=== PATIENT | female | born 1995 | race Caucasian/White ===

== ENCOUNTER 2022-12-04 10:34 | Inpatient (IN) | payer OTHER ==
[2022-12-04 11:20] VITALS: BMI 28.7
[2022-12-04] MEDS ORDERED: CITRIC ACID/SODIUM CITRATE 30 ML UNIT-DOSE CUP PO ONE (12:30)
[2022-12-04] MEDS ORDERED: ELECTROLYTE-148 SOLN 1,000 ML IV ONE (12:30)
[2022-12-04] MEDS ORDERED: ELECTROLYTE-148 SOLN 1,000 ML IV SCH (12:30)
[2022-12-04] MEDS ORDERED: ACETAMINOPHEN INJECTION 100 ML IVPB ONE (13:30)
[2022-12-04] MEDS ORDERED: OXYTOCIN 20 UNITS in 0.9% NS 40 UNIT/2,000 ML INFUS.BAG IV ONE (13:30)
[2022-12-04] MEDS ORDERED: ceFAZolin SODIUM 1 GM VIAL ONE (13:32)
[2022-12-04] MEDS ORDERED: morphine SULFATE/PF 1 MG/2 ML (2cc Syringe - QUVA) ONE (13:32)
[2022-12-04] MEDS ORDERED: DEXAMETHASONE SOD PHOSPHATE 4 MG/1 ML VIAL ONE (13:32)
[2022-12-04] MEDS ORDERED: ONDANSETRON 4 MG/2 ML VIAL ONE (13:32)
[2022-12-04] MEDS ORDERED: OXYTOCIN 10 UNITS/ML VIAL ONE (14:11)
[2022-12-04] MEDS: OXYTOCIN 20 UNITS in 0.9% NS 20 UNIT/1,000 ML INFUS.BAG IV SCH ×2 (15:00→20:40)
[2022-12-04] MEDS ORDERED: IBUPROFEN 800 MG/8 ML IJ IVPB PRN (15:09)
[2022-12-04] MEDS ORDERED: METHYLERGONOVINE MALEATE 0.2 MG/1 ML AMP IM PRN (15:09)
[2022-12-04] MEDS ORDERED: ACETAMINOPHEN 325 MG TABLET (FP) PO PRN (15:09)
[2022-12-04] MEDS ORDERED: ACETAMINOPHEN 1000 MG/100 ML BAG IVPB PRN (15:11)
[2022-12-04] MEDS: FERROUS SO4 325 MG TABLET (FP) PO SCH (17:57)
[2022-12-04] MEDS ORDERED: OXYTOCIN 20 UNITS in 0.9% NS 20 UNIT/1,000 ML INFUS.BAG IV ONE (20:35)
[2022-12-04] MEDS: SIMETHICONE 80 MG TAB.CHEW (FP) PO PRN (22:04)
[2022-12-05] MEDS ORDERED: oxyCODONE HCL 5 MG TABLET PO PRN (03:09)
[2022-12-05 07:47] LABS: BASO % 0.3 % (0-2.0); EOS % 0.1 % (0-4.5); HEMATOCRIT 29.3 % (32.4-45.2); HEMOGLOBIN 9.4 GM/dL (10.7-15.3); LYMPH % 13.8 % (8-40); MCH 26.5 pg (25.7-33.7); MCHC 32.2 g/dl (32.0-36.0); MEAN CELL VOLUME 82.3 fl (80-96); MEAN PLT VOLUME 9.9 fl (7.5-11.1); MONO % 9.2 % (3.8-10.2); NEUT % 76.6 % (42.8-82.8); PLATELET COUNT 171 10^3/uL (134-434); RBC 3.57 M/mm3 (3.60-5.2); RDW 15.5 % (11.6-15.6); WHITE BLOOD COUNT 17.9 K/mm3 (4.0-10.0)
[2022-12-05] MEDS: SIMETHICONE 80 MG TAB.CHEW (FP) PO PRN ×2 (09:53→23:34)
[2022-12-05] MEDS: FERROUS SO4 325 MG TABLET (FP) PO SCH ×2 (09:53→18:04)
[2022-12-05] MEDS: PRENATAL VITAMINS W/ FOLIC ACID TABLET (FP) PO SCH (09:53)
[2022-12-05] MEDS: IBUPROFEN 600 MG TABLET (FP) PO PRN ×3 (09:53→23:34)
[2022-12-05] MEDS ORDERED: BISACODYL 10 MG SUPP.RECT RC PRN (15:09)
[2022-12-05 22:45] VITALS: RESP 18
[2022-12-05] MEDS: SENNOSIDES/DOCUSATE COMBO (SENNA PLUS) TABLET (UD) PO PRN (23:34)
[2022-12-06] MEDS: FERROUS SO4 325 MG TABLET (FP) PO SCH ×2 (08:51→17:13)
[2022-12-06] MEDS: PRENATAL VITAMINS W/ FOLIC ACID TABLET (FP) PO SCH (09:52)
[2022-12-06] MEDS: oxyCODONE HCL 5 MG TABLET PO PRN ×3 (12:29→21:56)
[2022-12-06] MEDS: IBUPROFEN 600 MG TABLET (FP) PO PRN (17:13)
[2022-12-06] MEDS: SENNOSIDES/DOCUSATE COMBO (SENNA PLUS) TABLET (UD) PO PRN (21:56)
[2022-12-06] MEDS: SIMETHICONE 80 MG TAB.CHEW (FP) PO PRN (21:56)
[2022-12-07] MEDS: SIMETHICONE 80 MG TAB.CHEW (FP) PO PRN (02:44)
[2022-12-07] MEDS: oxyCODONE HCL 5 MG TABLET PO PRN ×2 (02:44→09:38)
[2022-12-07] MEDS: IBUPROFEN 600 MG TABLET (FP) PO PRN (08:03)
[2022-12-07] MEDS: FERROUS SO4 325 MG TABLET (FP) PO SCH (08:04)
[2022-12-07 08:33] VITALS: BP 127/80; PULSE 78; TEMP 98.3
[2022-12-07] MEDS: PRENATAL VITAMINS W/ FOLIC ACID TABLET (FP) PO SCH (09:38)
== END 2022-12-07 11:25 | disposition home or self-care (01) | DRG 540 ==
LOC: JLDR 10:34 → J3W 16:10
PROVIDERS: ADMIT Obstetrics & Gynecology; ATTEND Obstetrics & Gynecology
PROC: 10D00Z0 Extraction of Products of Conception, High, Open Approach (ICD-10-PCS; principal; 2022-12-04)
DX: O34.211 Maternal care for low transverse scar from previous cesarean delivery (principal); Z37.0 Single live birth; R03.0 Elevated blood-pressure reading, without diagnosis of hypertension; O69.1XX0 Labor and delivery complicated by cord around neck, with compression, not applicable or unspecified; Z3A.39 39 weeks gestation of pregnancy; Z87.59 Personal history of other complications of pregnancy, childbirth and the puerperium
CPT/HCPCS: 36415; 85025; 88307-TC; 94010

== ENCOUNTER 2023-03-26 04:34 | Day surgery (SDC) | payer OTHER ==
[2023-03-24 11:49] VITALS: BMI 23.3
[2023-03-26] MEDS ORDERED: LIDOCAINE HCL/PF 2% SDV 5ML VIAL ONE (15:01)
[2023-03-26] MEDS ORDERED: PROPOFOL 20 ML ONE (15:01)
[2023-03-26] MEDS ORDERED: MIDAZOLAM HCL 2 MG/2 ML SINGLE DOSE VIAL ONE (15:02)
[2023-03-26] MEDS ORDERED: ACETAMINOPHEN 1000 MG/100 ML BAG IVPB ONE ×2 (15:10→16:48)
[2023-03-26] MEDS ORDERED: DEXAMETHASONE SOD PHOSPHATE 4 MG/1 ML VIAL ONE (16:08)
[2023-03-26] MEDS ORDERED: ceFAZolin SODIUM 1 GM VIAL ONE (16:08)
[2023-03-26] MEDS ORDERED: ceFAZolin SODIUM 1 GM VIAL IVPB ONE (16:10)
[2023-03-26] MEDS ORDERED: KETOROLAC TROMETHAMINE 30 MG/1 ML VIAL ONE (16:14)
[2023-03-26] MEDS ORDERED: ONDANSETRON 4 MG/2 ML VIAL ONE ×2 (16:14→17:28)
[2023-03-26] MEDS ORDERED: IOHEXOL 300 MG/ML INFUS..BTL IV ONE (16:20)
[2023-03-26] MEDS ORDERED: PROMETHAZINE HCL 25 MG/1 ML VIAL IVPB PRN (16:48)
[2023-03-26] MEDS ORDERED: oxyCODONE HCL 5 MG TABLET PO PRN ×2 (16:48)
[2023-03-26] MEDS ORDERED: ONDANSETRON 4 MG/2 ML VIAL IVPUSH PRN (16:48)
[2023-03-26] MEDS ORDERED: ACETAMINOPHEN INJECTION 100 ML IVPB ONE (16:56)
[2023-03-26] MEDS ORDERED: LACTATED RINGERS SOLUTION 1,000 ML IV SCH (17:00)
[2023-03-26 17:53] VITALS: TEMP 97.7
[2023-03-26 18:01] VITALS: BP 115/71; PULSE 72; RESP 20
== END 2023-03-26 18:05 | disposition home or self-care (01) ==
LOC: JASU-SURG 04:34
PROVIDERS: ATTEND Urology
PROC: 0TC78ZZ Extirpation of Matter from Left Ureter, Via Natural or Artificial Opening Endoscopic (ICD-10-PCS; principal; 2023-03-26 15:30)
PROC: 0T778DZ Dilation of Left Ureter with Intraluminal Device, Via Natural or Artificial Opening Endoscopic (ICD-10-PCS; 2023-03-26 15:30)
DX: N20.1 Calculus of ureter (principal)
CPT/HCPCS: 76000-TC-FY; 81025; 94760; C1758; C2617